=== PATIENT | female | born 1990 | race American Indian/Alaskan Native ===

== ENCOUNTER 2018-04-27 15:13 | Emergency (ER) | payer BC, OTHER ==
[2018-04-27 15:19] VITALS: BP 128/79
[2018-04-27 16:44] LABS: Bilirubin,Urine NEG (Negative); Blood,Urine NEG (Negative); Color,Urine Yellow (Yellow); Mucus,Urine FEW /HPF; Protein,Urine <15 mg/dL mg/dL (Negative)
[2018-04-27 16:58] LABS: HCG Qualitative,Urine Negative (Negative)
--- NOTE | 2018-04-27 19:17 | Emergency Department Report ---
ED General Adult HPI - General Chief complaint: Skin Rash Stated complaint: RASH CAUSING DISCHARGE Time Seen by Provider: 04/27/18 19:06 Source: patient Mode of arrival: Ambulatory Limitations: No Limitations - History of Present Illness Initial comments: 27-year-old obese female to emergency Department complaining of rash to the body that has continued to be present for the last month after taking Lamisil as directed. Reports that the rash is pruritic and continuing to progress and worsening under her right breast. Chest pain, palpitations, wheezing, dysphagia or dysuria. She 6 days after the medication. She did develop a foul vaginal odor, which would like to have evaluated as well. There is no vaginal bleeding or other new pelvic pain. No dyspareunia. She reports no hematuria either. Radiation: non-radiation Improves with: none Worsens with: none Associated Symptoms: denies: cough, diaphoresis, loss of appetite, malaise, nausea/vomiting, shortness of breath, syncope, weakness Treatments Prior to Arrival: none - Related Data Previous Rx's Medication Instructions Recorded Last Taken Type Ketoconazole 2% [Nizoral] 1 applicatio TP QDAY 14 Days #2 03/17/18 Unknown Rx tube Terbinafine (Nf) [LamiSIL] 250 mg PO QDAY 30 Days #30 tablet 03/26/18 Unknown Rx Terbinafine HCl 250 mg PO QDAY #20 tablet 03/26/18 Unknown Rx Terbinafine [LamiSIL At 1%] 1 applicatio TP QDAY #30 gel..gram. 03/26/18 Unknown Rx Chlorhexidine Gluconate [Hibiclens] 10 ml TP BID #240 liquid 04/27/18 Unknown Rx Ciclopirox 0.77% (Nf) [Loprox 1 applic TP BID #30 tube 04/27/18 Unknown Rx 0.77% (Nf)] metroNIDAZOLE [Flagyl] 500 mg PO BID #10 tab 04/27/18 Unknown Rx Allergies Allergy/AdvReac Type Severity Reaction Status Date / Time No Known Allergies Allergy Verified 03/17/18 11:05 ED Review of Systems ROS: Stated complaint: RASH CAUSING DISCHARGE Other details as noted in HPI Constitutional: denies: chills, fever Eyes: denies: eye pain, eye discharge, vision change ENT: denies: ear pain, throat pain Respiratory: denies: cough, shortness of breath, wheezing Cardiovascular: denies: chest pain, palpitations Endocrine: no symptoms reported Gastrointestinal: denies: abdominal pain, nausea, diarrhea Genitourinary: discharge. denies: urgency, dysuria Musculoskeletal: denies: back pain, joint swelling, arthralgia Skin: rash. denies: lesions Neurological: denies: headache, weakness, paresthesias Psychiatric: denies: anxiety, depression Hematological/Lymphatic: denies: easy bleeding, easy bruising ED Past Medical Hx - Past Medical History Previous Medical History?: No - Surgical History Past Surgical History?: Yes Additional Surgical History: - Social History Smoking Status: Never Smoker Substance Use Type: None - Medications Home Medications: Home Medications Medication Instructions Recorded Confirmed Last Taken Type Ketoconazole 2% [Nizoral] 1 applicatio TP QDAY 14 Days #2 03/17/18 Unknown Rx tube Terbinafine (Nf) [LamiSIL] 250 mg PO QDAY 30 Days #30 tablet 03/26/18 Unknown Rx Terbinafine HCl 250 mg PO QDAY #20 tablet 03/26/18 Unknown Rx Terbinafine [LamiSIL At 1%] 1 applicatio TP QDAY #30 gel..gram. 03/26/18 Unknown Rx Chlorhexidine Gluconate [Hibiclens] 10 ml TP BID #240 liquid 04/27/18 Unknown Rx Ciclopirox 0.77% (Nf) [Loprox 1 applic TP BID #30 tube 04/27/18 Unknown Rx 0.77% (Nf)] metroNIDAZOLE [Flagyl] 500 mg PO BID #10 tab 04/27/18 Unknown Rx ED Physical Exam - General Limitations: No Limitations General appearance: alert, in no apparent distress - Head Head exam: Present: atraumatic, normocephalic - Eye Eye exam: Present: normal appearance, PERRL, EOMI Pupils: Present: normal accommodation - ENT ENT exam: Present: normal exam, normal orophraynx, mucous membranes moist - Neck Neck exam: Present: normal inspection, full ROM - Respiratory Respiratory exam: Present: normal lung sounds bilaterally. Absent: respiratory distress, wheezes, rales, rhonchi, accessory muscle use, decreased breath sounds - Cardiovascular Cardiovascular Exam: Present: regular rate, normal rhythm. Absent: systolic murmur, diastolic murmur, rubs, gallop - GI/Abdominal GI/Abdominal exam: Present: soft, normal bowel sounds. Absent: tenderness, guarding, organomegaly, mass, bruit - Extremities Exam Extremities exam: Present: normal inspection, full ROM, normal capillary refill - Back Exam Back exam: Present: normal inspection. Absent: CVA tenderness (R), CVA tende rness (L), muscle spasm - Neurological Exam Neurological exam: Present: alert, oriented X3, CN II-XII intact - Psychiatric Psychiatric exam: Present: normal affect, normal mood - Skin Skin exam: Present: warm, dry, intact, normal color, other (scaly irregular oval shaped multi-size macular hyperpigmented patches diffusely spread over the body with a hyperpigmented, scaly lesion on the left breast with some fissures noted.). Absent: rash ED Course Vital Signs 04/27/18 15:16 Temperature 97.9 F Pulse Rate 69 Respiratory 18 Rate Blood Pressure 128/79 O2 Sat by Pulse 99 Oximetry Critical care attestation.: If time is entered above; I have spent that time in minutes in the direct care of this critically ill patient, excluding procedure time. ED Disposition Clinical Impression: Rash, Vaginal discharge Disposition: DC-01 TO HOME OR SELFCARE Is pt being admited?: No Does the pt Need Aspirin: No Condition: Stable Instructions: Bacterial Vaginosis (ED), Acute Rash (ED) Prescriptions: Chlorhexidine Gluconate [Hibiclens] 10 ml TP BID #240 liquid Ciclopirox 0.77% (Nf) [Loprox 0.77% (Nf)] 1 applic TP BID #30 tube metroNIDAZOLE [Flagyl] 500 mg PO BID #10 tab Referrals: PRIMARY CARE, [Primary Care Provider] - 3-5 Days [facility] [Provider Group] - 3-5 Days
== END 2018-04-27 20:20 | disposition home or self-care (01) ==
LOC: ED 15:13
DX: N89.8 Other specified noninflammatory disorders of vagina (principal)
CPT/HCPCS: 81001; 81025; 87210; 87591; 99284

== ENCOUNTER 2019-10-09 17:14 | Emergency (ER) | payer BC ==
[2019-10-09 17:19] VITALS: BP 148/78
--- NOTE | 2019-10-09 17:23 | Emergency Department Report ---
Minor Respiratory - HPI Chief Complaint: Sore Throat Stated Complaint: BODY PAIN,SORE THROAT Time Seen by Provider: 10/09/19 17:20 Duration: 2 Days Pain Location: Throat Severity: moderate Minor Respiratory: Yes Sore Throat, Yes Able to Tolerate Fluids, No Rhinorrhea, No Ear Pain, No Cough, No Sick Contacts, No Hemoptysis, No Chest Pain, No Shortness of Breath, No Fever Other History: 29 YO COMES TO ER WITH SORE THROAT FOR 2 DAYS. BILATERAL EXUDATES ED Review of Systems ROS: Stated complaint: BODY PAIN,SORE THROAT Other details as noted in HPI Comment: All other systems reviewed and negative ED Past Medical Hx - Past Medical History Previous Medical History?: No - Surgical History Past Surgical History?: Yes Additional Surgical History: - Family History Family history: no significant - Social History Smoking Status: Never Smoker Substance Use Type: None - Medications Home Medications: Home Medications Medication Instructions Recorded Confirmed Last Taken Type Amoxicillin [Trimox CAP] 500 mg PO BID #20 capsule 10/09/19 Unknown Rx Minor Respiratory Exam - Exam General: Vital signs noted. No distress. Alert and acting appropriately. HEENT: Yes Pharyngeal Erythema, Yes Pharyngeal Exudates, Yes Moist Mucous Membranes, No Rhinorrhea, No Conjuctival Injection, No Frontal Tenderness, No Maxillary Tenderness Ear: Neither TM Bulge, Neither TM Erythema, Neither EAC Pain, Neither EAC Discharge Neck: Yes Supple, No Adenopathy Lungs: Yes Good Air Exchange, No Wheezes, No Ronchi, No Stridor, No Cough, No Labored Respirations, No Retractions, No Use of Accessory Muscles, No Other Abnormal Lung Sounds Heart: Yes Regular, No Murmur Abdomen: Yes Normal Bowel Sounds, No Tenderness, No Peritoneal Signs Skin: No Rash, No Edema Neurologic: Alert and oriented, no deficits. Musculoskeletal: Unremarkable. ED Course Vital Signs 10/09/19 17:16 Temperature 98.3 F Pulse Rate 79 Respiratory 16 Rate Blood Pressure 148/78 O2 Sat by Pulse 100 Oximetry ED Medical Decision Making - Medical Decision Making Vital Signs 10/09/19 17:16 Temperature 98.3 F Pulse Rate 79 Respiratory 16 Rate Blood Pressure 148/78 O2 Sat by Pulse 100 Oximetry B EXUDATES NO FEVER NO CHILLS TAKING PO DC HOME WITH RX AND PCP FOLLOW UP REFERRAL GIVEN - Differential Diagnosis PHARYNGITIS Critical care attestation.: If time is entered above; I have spent that time in minutes in the direct care of this critically ill patient, excluding procedure time. ED Disposition Clinical Impression: Exudative pharyngitis Disposition: DC-01 TO HOME OR SELFCARE Is pt being admited?: No Does the pt Need Aspirin: No Condition: Stable Instructions: Pharyngitis (ED) Additional Instructions: STAY WELL HYDRATED MOTRIN OR TYLENOL FOR PAIN OR FEVER ANTIBIOTIC GIVEN TO YOU TODAY TAKE UNTIL GONE FOLLOW UP PCP REFERRAL BELOW Prescriptions: Amoxicillin [Trimox CAP] 500 mg PO BID #20 capsule Referrals: JOSEPH TOLEDO MD [Staff Physician] - 3-5 Days Forms: Work/School Release Form(ED) Time of Disposition: 17:21
== END 2019-10-09 17:25 | disposition home or self-care (01) ==
LOC: ED 17:14
DX: J02.9 Acute pharyngitis, unspecified (principal); Z98.890 Other specified postprocedural states; Z79.2 Long term (current) use of antibiotics
CPT/HCPCS: 99281

== ENCOUNTER 2020-03-29 08:38 | Emergency (ER) | payer BC ==
[2020-03-29 08:52] VITALS: BP 110/79
--- NOTE | 2020-03-29 11:40 | Emergency Department Report ---
ED Female HPI - General Chief complaint: Urogenital-Female Stated complaint: POSSIBLE VAGINAL INFECTION Source: patient Mode of arrival: Ambulatory Limitations: No Limitations - History of Present Illness Initial comments: 29-year-old female complaining of vaginal discharge irritation and itching x3 to 4 days. She is sexually active not using condoms with the same partner. Used Monistat insert x2 days with no relief. Also complaining of burning with urination. Denies past medical history her last menstrual period was 03/01/2020 she reports history of tubal ligation MD Complaint: vaginal discharge -: days(s) (3 days) Location: labia, perineum Radiation: non-radiating Quality: other (Itching) Consistency: constant Worsens with: urination Are you Now?: No Last Menstrual Period: 03/01/20 EDC: 12/06/20 Associated Symptoms: vaginal discharge, dysuria. denies: abdominal pain, nausea /vomiting, fever/chills, hematuria, rash, seizure - Related Data Sexually active: No Previous Rx's Medication Instructions Recorded Last Taken Type Amoxicillin [Trimox CAP] 500 mg PO BID #20 capsule 10/09/19 Unknown Rx Fluconazole (Nf) [Diflucan TAB] 150 mg PO ONCE #2 tablet 03/29/20 Unknown Rx Allergies Allergy/AdvReac Type Severity Reaction Status Date / Time No Known Allergies Allergy Verified 08/22/18 09:17 ED Review of Systems ROS: Stated complaint: POSSIBLE VAGINAL INFECTION Other details as noted in HPI Comment: All other systems reviewed and negative Constitutional: no symptoms reported Eyes: denies: eye pain, eye discharge, vision change ENT: denies: ear pain Cardiovascular: denies: chest pain, palpitations Endocrine: no symptoms reported Gastrointestinal: denies: abdominal pain, nausea, vomiting Genitourinary: dysuria. denies: hematuria Musculoskeletal: denies: back pain Skin: denies: rash Neurological: denies: headache, weakness Psychiatric: denies: anxiety, depression ED Past Medical Hx - Past Medical History Previous Medical History?: No - Surgical History Past Surgical History?: Yes Additional Surgical History: - Social History Smoking Status: Never Smoker Substance Use Type: Alcohol - Medications Home Medications: Home Medications Medication Instructions Recorded Confirmed Last Taken Type Amoxicillin [Trimox CAP] 500 mg PO BID #20 capsule 10/09/19 Unknown Rx Fluconazole (Nf) [Diflucan TAB] 150 mg PO ONCE #2 tablet 03/29/20 Unknown Rx ED Physical Exam - General Limitations: No Limitations General appearance: alert - Head Head exam: Present: atraumatic - Eye Eye exam: Present: normal appearance - ENT ENT exam: Present: normal exam - Neck Neck exam: Present: normal inspection - Respiratory Respiratory exam: Present: normal lung sounds bilaterally - Cardiovascular Cardiovascular Exam: Present: regular rate, normal heart sounds - GI/Abdominal GI/Abdominal exam: Present: soft. Absent: distended - Rectal Rectal exam: Present: deferred - External exam: Present: normal external exam Speculum exam: Present: other (White discharge seen on vaginal plummer probably Monistat cream unable to determine if any other abnormal discharge exists) Bi-manual exam: Present: normal bi-manual exam. Absent: cervical motion tendernes, adnexal tenderness, adnexal mass - Extremities Exam Extremities exam: Present: normal inspection - Neurological Exam Neurological exam: Present: alert, oriented X3 - Skin Skin exam: Present: warm, dry, intact ED Course Vital Signs 03/29/20 08:47 Temperature 98.1 F Pulse Rate 61 Respiratory 18 Rate Blood Pressure 110/79 O2 Sat by Pulse 97 Oximetry ED Medical Decision Making - Medical Decision Making 29-year-old female with complaining of vaginal itching and white discharge. She is sexually active with 1 partner not using condoms. Patient started Monistat [id number] with no relief. Upon examination vaginal wall filled with Monistat cream difficult to determine if there is abnormal discharge. Cultures done. - Differential Diagnosis Vaginitis STD Critical Care Time: No Critical care attestation.: If time is entered above; I have spent that time in minutes in the direct care of this critically ill patient, excluding procedure time. ED Disposition Clinical Impression: Vaginitis Qualifiers: Chronicity: acute Qualified Code(s): N76.0 - Acute vaginitis Disposition: - TO HOME OR SELFCARE Is pt being admited?: No Does the pt Need Aspirin: No Condition: Stable Instructions: Vaginitis, [id number] Additional Instructions: Follow-up the results of your GC culture in 3 to 5 days. You can go to medical records and request. Then you follow-up with your primary care doctor for repeat treatment or with Dr. Gee. Prescriptions: Fluconazole (Nf) [Diflucan TAB] 150 mg PO ONCE #2 tablet Referrals: PRIMARY CAREMD [Primary Care Provider] - 3-5 Days JOSEPH GEE MD [Staff Physician] - 3-5 Days Time of Disposition: 13:30
[2020-03-29 13:15] LABS: Bacteria,Urine 1+ /HPF (Negative); Bilirubin,Urine NEG (Negative); Blood,Urine SM (Negative); Color,Urine Yellow (Yellow); Mucus,Urine 3+ /HPF; Protein,Urine <15 mg/dL mg/dL (Negative); Urobilinogen,Urine < 2.0 mg/dL (<2.0)
[2020-03-29 13:18] LABS: HCG Qualitative,Urine Negative (Negative)
== END 2020-03-29 14:10 | disposition home or self-care (01) ==
LOC: ED 08:38
DX: N76.0 Acute vaginitis (principal)
CPT/HCPCS: 81001; 81025; 87591

== ENCOUNTER 2021-10-28 08:17 | Emergency (ER) | payer BC ==
[2021-10-28 08:40] VITALS: BP 124/70
--- NOTE | 2021-10-28 12:46 | Emergency Department Report ---
ED Female HPI - General Chief complaint: Urogenital-Female Stated complaint: PRESSURE WHEN URINATING/POSS STD Source: patient Mode of arrival: Ambulatory Limitations: No Limitations - History of Present Illness Initial comments: 31-year-old female presents to the ED complaining of dysuria x2 days. Patient also states that her partner exposed her to chlamydia. She denies any vaginal discharge at present time. She denies any abdominal pain at present time. Patient denies any fever chills nausea vomiting. Patient is alert and oriented x3. No acute distress noted.. No ill appearance noted. MD Complaint: dysuria, possible STD Onset/Timin -: days(s) Consistency: intermittent Improves with: none Worsens with: urination Are you Now?: No Associated Symptoms: denies other symptoms - Related Data Sexually active: Yes Previous Rx's Medication Instructions Recorded Last Taken Type Amoxicillin [Trimox CAP] 500 mg PO BID #20 capsule 10/09/19 Unknown Rx Fluconazole (Nf) [Diflucan TAB] 150 mg PO ONCE #2 tablet 03/29/20 Unknown Rx Doxycycline Hyclate [Doxycycline 100 mg PO Q12HR 10 Days #20 tab 10/28/21 Unknown Rx Hyclate TAB] Fluconazole (Nf) [Diflucan TAB] 150 mg PO ONCE 2 Days #2 tablet 10/28/21 Unknown Rx Allergies Allergy/AdvReac Type Severity Reaction Status Date / Time No Known Allergies Allergy Verified 08/22/18 09:17 ED Review of Systems ROS: Stated complaint: PRESSURE WHEN URINATING/POSS STD Other details as noted in HPI Constitutional: denies: chills, fever Eyes: denies: eye pain, eye discharge, vision change ENT: denies: ear pain, throat pain Respiratory: denies: cough, shortness of breath, wheezing Cardiovascular: denies: chest pain, palpitations Endocrine: no symptoms reported Gastrointestinal: denies: abdominal pain, nausea, diarrhea Genitourinary: denies: urgency, dysuria, discharge Musculoskeletal: denies: back pain, joint swelling, arthralgia Skin: denies: rash, lesions Neurological: denies: headache, weakness, paresthesias Psychiatric: denies: anxiety, depression Hematological/Lymphatic: denies: easy bleeding, easy bruising ED Past Medical Hx - Surgical History Additional Surgical History: - Social History Smoking Status: Never Smoker Substance Use Type: Alcohol - Medications Home Medications: Home Medications Medication Instructions Recorded Confirmed Last Taken Type Amoxicillin [Trimox CAP] 500 mg PO BID #20 capsule 10/09/19 Unknown Rx Fluconazole (Nf) [Diflucan TAB] 150 mg PO ONCE #2 tablet 03/29/20 Unknown Rx Doxycycline Hyclate [Doxycycline 100 mg PO Q12HR 10 Days #20 tab 10/28/21 Unknown Rx Hyclate TAB] Fluconazole (Nf) [Diflucan TAB] 150 mg PO ONCE 2 Days #2 tablet 10/28/21 Unknown Rx ED Physical Exam - General Limitations: No Limitations General appearance: alert, in no apparent distress - Head Head exam: Present: atraumatic, normocephalic - Eye Eye exam: Present: normal appearance - ENT ENT exam: Present: mucous membranes moist - Neck Neck exam: Present: normal inspection - Respiratory Respiratory exam: Present: normal lung sounds bilaterally. Absent: respiratory distress - Cardiovascular Cardiovascular Exam: Present: regular rate, normal rhythm. Absent: systolic murmur, diastolic murmur, rubs, gallop - GI/Abdominal GI/Abdominal exam: Present: soft, normal bowel sounds - Extremities Exam Extremities exam: Present: normal inspection - Back Exam Back exam: Present: normal inspection - Neurological Exam Neurological exam: Present: alert, oriented X3 - Psychiatric Psychiatric exam: Present: normal affect, normal mood - Skin Skin exam: Present: warm, dry, intact, normal color. Absent: rash ED Course Vital Signs 10/28/21 08:39 Temperature 98.8 F Pulse Rate 55 L Respiratory 18 Rate Blood Pressure 124/70 [Right] O2 Sat by Pulse 98 Oximetry ED Medical Decision Making - Medical Decision Making 31-year-old female presents to the ED complaining of dysuria x2 days. Patient also states that her partner exposed her to chlamydia. She denies any vaginal discharge at present time. She denies any abdominal pain at present time. Patient denies any fever ,chills ,nausea vomiting. Patient is alert and oriented x3. No acute distress noted.. No ill appearance noted. Wet prep negative. Physical examination negative Rechecked the patient is resting quietly quietly and comfortable and feeling better. I discussed the results of diagnostic study, my clinical impression and the plan for further treatment with the patient. Patient agrees with plan and discharge at this present time. All question addressed. I have given the patient instruction regarding a diagnosis ,expectation ,follow- up and return precaution. I explained to the patient that emergent condition may arise and to return to the ED for new worsen and any new persisting condition. I have explained the importance of following up with the primary care physician or referral physician listed below has instructed. The patient verbalized understanding of discharge instruction. Abnormal Lab Results 10/28/21 12:13 Urine Color Straw Urine Turbidity Clear Urine pH 6.0 Ur Specific Kimball 1.012 Urine Protein <15 mg/dl Urine Glucose (UA) Neg Urine Ketones Neg Urine Blood Neg Urine Nitrite Neg Urine Bilirubin Neg Urine Urobilinogen < 2.0 Ur Leukocyte Esterase Neg Urine WBC (Auto) 2.0 Urine RBC (Auto) 3.0 U Epithel Cells (Auto) 7.0 Urine HCG, Qual Negative Critical care attestation.: If time is entered above; I have spent that time in minutes in the direct care of this critically ill patient, excluding procedure time. ED Disposition Clinical Impression: Possible exposure to STD, Chlamydia Disposition: HOME / SELF CARE / HOMELESS Is pt being admited?: No Does the pt Need Aspirin: No Condition: Stable Instructions: Safe Sex, Chlamydia, Female, [id number] Additional Instructions: Take medication as prescribed Prescriptions: Fluconazole (Nf) [Diflucan TAB] 150 mg PO ONCE 2 Days #2 tablet Doxycycline Hyclate [Doxycycline Hyclate TAB] 100 mg PO Q12HR 10 Days #20 tab Referrals: JOSEPH TOLEDO MD [Primary Care Provider] - 3-5 Days Forms: Work/School Release Form(ED) Time of Disposition: 14:00
[2021-10-28 12:50] LABS: Bilirubin,Urine NEG (Negative); Blood,Urine NEG (Negative); Color,Urine Straw (Yellow); Protein,Urine <15 mg/dL mg/dL (Negative); Urobilinogen,Urine < 2.0 mg/dL (<2.0)
[2021-10-28 13:03] LABS: HCG Qualitative,Urine Negative (Negative)
[2021-10-28] MEDS ORDERED: LIDOCAINE-MPF (1%) 10 MG/1 ML VIAL 5 ML INFILTRATI ONE (13:32)
== END 2021-10-28 14:18 | disposition home or self-care (01) ==
LOC: ED 08:17
DX: Z20.2 Contact with and (suspected) exposure to infections with a predominantly sexual mode of transmission (principal); A74.9 Chlamydial infection, unspecified; F10.20 Alcohol dependence, uncomplicated
CPT/HCPCS: 81001; 81025; 87210; 87591; 96372; 99283; J0696; J3490